=== PATIENT | female | born 1950 | race Caucasian/White ===

== ENCOUNTER 2018-01-02 05:35 | Day surgery (SDC) | payer OTHER, MEDICARE ==
[2017-12-30 11:30] LABS: BILIRUBIN,URINE NEGATIVE (NEGATIVE); BLOOD, URINE NEGATIVE (NEGATIVE); CLARITY/URINE CLEAR (CLEAR); COLOR,URINE YELLOW (YELLOW); GLUCOSE,URINE NEGATIVE (NEGATIVE); KETONES,URINE NEGATIVE (NEGATIVE); LEUKOCYTE ESTERASE ,URINE NEGATIVE (NEGATIVE); NITRITE, URINE NEGATIVE (NEGATIVE); PROTEIN URINE NEGATIVE (NEGATIVE); UROBILINOGEN,URINE 0.2 (0.2-1.0)
[2017-12-30 11:49] LABS: CALCIUM 9.4 mg/dL (8.4-11.0); CREATININE 0.69 mg/dL (0.55-1.30); POTASSIUM 4.4 mmol/L (3.5-5.1); TOTAL BILIRUBIN 0.6 mg/dL (0.0-1.0)
[2017-12-30 12:10] LABS: BASOPHILS # (AUTO) 0.1 K/uL (0.0-0.2); BASOPHILS % (AUTO) 0.9 % (0.0-2.0); EOSINOPHILS # (AUTO) 0.5 K/uL (0.0-0.4); EOSINOPHILS % (AUTO) 6.5 % (0.0-4.0); HEMATOCRIT 38.8 % (36-48); HEMOGLOBIN 13.2 g/dL (12.0-16.0); LYMPHOCYTES # (AUTO) 2.4 K/uL (1.0-5.5); LYMPHOCYTES % (AUTO) 33.7 % (20.5-51.5); MEAN CORPUSCULAR HEMOGLOBIN 31 pg (27-31); MEAN CORPUSCULAR HGB CONC 34 % (32-36); MEAN CORPUSCULAR VOLUME 90 fL (79.0-98.0); MONOCYTES # (AUTO) 0.5 K/uL (0.0-1.0); NEUTROPHILS # (AUTO) 3.7 K/uL (1.8-7.7); NEUTROPHILS % (AUTO) 51.9 % (40.0-70.0); PLATELET COUNT (AUTO) 344 K/uL (130-430); RED BLOOD CELL COUNT(AUTO) 4.31 MIL/uL (4.2-6.2); WHITE BLOOD COUNT (AUTO) 7.2 K/uL (4.8-10.8)
[~2018-01-02] VITALS: Ht 152.4 cm; Wt 101.6 kg
[2018-01-02] MEDS ORDERED: MEPERIDINE HCL/PF 100 MG/ML AMP IM ONE (07:20)
[2018-01-02] MEDS ORDERED: fentaNYL CITRATE 250 MCG/5 ML AMP IV ONE (07:20)
[2018-01-02] MEDS ORDERED: LR 1,000 ML IV.SOLN IV ONE (07:20)
[2018-01-02] MEDS ORDERED: DEXAMETHASONE SOD PHOSPHATE 4 MG/ML VIAL IVP ONE (07:20)
[2018-01-02] MEDS ORDERED: MIDAZOLAM HCL 5 MG/5 ML VIAL IVP ONE (07:20)
[2018-01-02] MEDS ORDERED: PROPOFOL 200MG/ 20ML VIAL (DIPRIVAN) IV ONE (07:20)
[2018-01-02] MEDS ORDERED: KETOROLAC TROMETHAMINE 30 MG VIAL IVP ONE (07:20)
[2018-01-02] MEDS ORDERED: SEVOFLURANE 15 MIN GAS INH ONE (07:20)
[2018-01-02] MEDS ORDERED: ONDANSETRON HCL 4 MG/2 ML VIAL IVP ONE ×2 (07:20→08:30)
[2018-01-02] MEDS ORDERED: fentaNYL CITRATE/PF 100 MCG/2 ML AMP IVP PRN (08:30)
[2018-01-02] MEDS ORDERED: MEPERIDINE HCL/PF 25 MG/ML DISP.SYRIN IVP PRN (08:30)
[2018-01-02] MEDS ORDERED: NALOXONE HCL 0.4 MG/ML AMP (NARCAN) IVP ONE (08:30)
[2018-01-02] MEDS ORDERED: ONDANSETRON HCL 4 MG/2 ML VIAL IVP PRN ×2 (08:30→09:45)
[2018-01-02] MEDS ORDERED: IBUPROFEN 800 MG TABLET PO PRN ×2 (08:30→09:45)
[2018-01-02] MEDS ORDERED: MIDAZOLAM HCL 5 MG/5 ML VIAL IVP PRN (08:30)
[2018-01-02] MEDS ORDERED: HYDROmorphone 1 MG INJ. 1 MG/ML AMPUL IVP PRN (08:30)
[2018-01-02] MEDS ORDERED: OXYCODONE/ACETAMINOPHEN 5-325 TABLET PO PRN ×4 (08:30→09:45)
[2018-01-02] MEDS ORDERED: fentaNYL CITRATE/PF 100 MCG/2 ML AMP ONE (08:58)
[2018-01-02 09:47] VITALS: BP_SYST 117
== END 2018-01-02 10:30 | disposition home or self-care (01) ==
LOC: SDS 05:35 → SMU 05:35 → SDS 10:30
PROVIDERS: ATTEND Obstetrics & Gynecology
DX: N95.0 Postmenopausal bleeding (principal); E78.5 Hyperlipidemia, unspecified; I10 Essential (primary) hypertension; E66.01 Morbid (severe) obesity due to excess calories; Z79.899 Other long term (current) drug therapy; Z68.41 Body mass index [BMI] 40.0-44.9, adult; K21.9 Gastro-esophageal reflux disease without esophagitis; M25.50 Pain in unspecified joint
CPT/HCPCS: 36415; 58558; 80053; 81003; 85025; 88305; J1100; J1885; J2175; J2250; J2405; J2704; J3010 ×2; J7120